=== PATIENT | female | born 1980 | race Caucasian/White ===

== ENCOUNTER 2021-01-01 15:25 | Emergency (ER) | payer MEDICAID, OTHER ==
[~2021-01-01] VITALS: Ht 167.6 cm; Wt 79.7 kg
--- NOTE | 2021-01-01 15:44 | NUR ---
STATES PRODUCTIVE COUGH X3 WEEKS, STATES RT SIDED CP WELL WITH COUGHING. STATES SMOKES METH. CHRISTOPHER PA AT BEDSIDE. BOYFRIEND AT BEDSIDE. PT ATTACHED TO MONITORS. VSS. PEREZ.
[2021-01-01 16:06] LABS: BASOPHILS % (AUTO) 1 % (0-1); EOSINOPHILS % (AUTO) 3 % (1-7); LYMPHOCYTES % (AUTO) 36 % (22-44); MEAN CORPUSCULAR HEMOGLOBIN 25.5 pg (27.0-34.8); MEAN CORPUSCULAR HGB CONC 31.7 g/dL (32.4-35.8); MEAN PLATELET VOLUME 6.5 fL (7.4-10.4); MONOCYTES % (AUTO) 17 % (2-9); NEUTROPHILS % (AUTO) 44 % (42-75); PLATELET COUNT 260 x10^3/uL (130-400); RED BLOOD COUNT 4.22 x10^6/uL (3.82-5.3); RED CELL DISTRIBUTION WIDTH 19.9 % (9.6-15.2)
[2021-01-01 16:18] LABS: ALANINE AMINOTRANSFERASE 62 U/L (12-78); ALBUMIN 3.6 g/dL (3.4-5.0); ANION GAP 9 mmol/L (5-15); CALCIUM 8.4 mg/dL (8.5-10.1); CHLORIDE 107 mmol/L (98-107)
[2021-01-01 16:22] LABS: ALKALINE PHOSPHATASE 116 U/L (45-117); BILIRUBIN,TOTAL 0.3 mg/dL (0.2-1.0); CREATININE 0.58 mg/dL (0.55-1.02); TOTAL PROTEIN 7.8 g/dL (6.4-8.2)
[2021-01-01 16:47] LABS: MD MORPH REVIEW ONLY
[2021-01-01 16:58] LABS: MICROCYTOSIS 1+
[2021-01-01 16:59] LABS: <PLATELET ESTIMATE> ADEQUATE; <PLT MORPHOLOGY> NORMAL PLT MORPH; ANISOCYTOSIS 2+
[2021-01-01 17:00] LABS: HYPOCHROMIA 2+
--- NOTE | 2021-01-01 18:04 | NUR ---
pt asleep. vss .nadn.
--- NOTE | 2021-01-01 18:53 | NUR ---
REPORT FROM RACHELLE MARISUPERVISOR DOG LICENSE OFFICER OF CARE AT THIS TIME.
[2021-01-01] MEDS ORDERED: OMNIPAQUE 350 MG/ML, 75ML BOTTLE ONE (18:55)
[2021-01-01 19:48] VITALS: BP 129/85
== END 2021-01-01 19:53 | disposition home or self-care (01) ==
LOC: ED 18:49
DX: J40 Bronchitis, not specified as acute or chronic (principal); R09.1 Pleurisy; R07.89 Other chest pain; R05 Cough; R06.00 Dyspnea, unspecified; R06.02 Shortness of breath; Z76.0 Encounter for issue of repeat prescription
CPT/HCPCS: 36415; 71045; 71275; 80053; 85025; 99285; Q9967

== ENCOUNTER 2021-01-31 20:53 | Emergency (ER) | payer OTHER, MEDICAID ==
[~2021-01-31] VITALS: Ht 170.2 cm; Wt 80.0 kg
[2021-01-31 21:11] VITALS: BP 136/88
== END 2021-01-31 22:45 | disposition home or self-care (01) ==
LOC: ED 21:04
DX: S01.01XD Laceration without foreign body of scalp, subsequent encounter (principal); F17.210 Nicotine dependence, cigarettes, uncomplicated; X58.XXXD Exposure to other specified factors, subsequent encounter
CPT/HCPCS: 99281

== ENCOUNTER 2021-05-01 11:16 | Emergency (ER) | payer MEDICAID, OTHER ==
[~2021-05-01] VITALS: Ht 167.6 cm; Wt 100.0 kg
[2021-05-01 12:22] VITALS: BP 153/97
[2021-05-01] MEDS ORDERED: KETOROLAC 30 MG/1 ML IM ONE (12:30)
[2021-05-01] MEDS ORDERED: CYCLOBENZAPRINE 10 MG TABLET PO ONE (12:30)
--- NOTE | 2021-05-01 16:30 | NUR ---
[id number]
== END 2021-05-01 17:51 | disposition left against medical advice (07) ==
LOC: ED 13:48
DX: M43.6 Torticollis (principal)
CPT/HCPCS: 99281